=== PATIENT | female | born 1940 | race Caucasian/White ===

== ENCOUNTER → 2017-05-25 | Outpatient (CLI) | payer MEDICARE, OTHER ==
--- NOTE | 2017-05-25 13:48 | RAD ---
CT head without intravenous contrast History: TIA. Comparison: None. Technique: Axial images are obtained of the head from the skull base through the vertex without IV contrast. Exposure: One or more of the following individualized dose reduction techniques were utilized for this examination: 1. Automated exposure control 2. Adjustment of the mA and/or kV according to patient size 3. Use of iterative reconstruction technique Findings: The ventricles are appropriate in size, shape, and location for the patient's age. No obvious intracranial mass, mass-effect, midline shift, hemorrhage or obvious acute infarction is identified. Basilar cisterns are patent. Mild, patchy, nonspecific white matter low-attenuation is seen, probably from chronic thoracic ischemic disease. Bone windows demonstrate no acute calvarial abnormality. Appearance of bilateral maxillary sinuses suggests previous surgery. Incompletely seen is a right maxillary sinus disease. Impression: 1. No acute intracranial process. Please note that CT can be relatively insensitive to acute ischemic infarction for up to 24 hours after symptom onset. 2. Mild nonspecific white matter changes, probably from chronic microvascular ischemic disease. 3. Suspect previous sinus surgery. Electronically signed by: Toan Baeza MD (05/25/2017 1:45 PM) [place] [id number]
--- NOTE | 2017-05-25 14:41 | RAD ---
Carotid ultrasound, 05/25/2017: History: TIA, dizziness, memory problems Duplex evaluation of the carotid arteries in neck was performed including grayscale, color-flow and spectral Doppler analysis. There is mild intimal thickening in the common carotid arteries extending into the bifurcations. There is mild atherosclerotic plaquing at the right carotid bifurcation with partial calcification of the plaques. The peak systolic velocity in the right internal carotid artery is 53 cm/s with an end-diastolic velocity of 9 cm/s. The internal carotid common carotid artery ratio on the right is 0.8. The Doppler findings suggest underlying luminal narrowing in the 0-50% diameter range. On the left, no significant plaque formation is seen at the bifurcation. The left internal carotid artery is tortuous. The peak systolic velocity in the left internal carotid artery is 64 cm/s within an end-diastolic velocity 16 cm/s. The yields an internal carotid to common carotid artery ratio on the left of 0.70. These findings do not suggest significant stenosis. Antegrade flow is present in both vertebral arteries in the neck. IMPRESSION: 1. Mild atherosclerotic plaquing at the right carotid bifurcation with underlying luminal narrowing of the proximal internal carotid artery in the 0-50% diameter range. 2. No duplex evidence of a significant carotid stenosis at the left carotid bifurcation. Note: Stenosis calculations for CTA, MRA and conventional angiography are based upon determination of the distal ICA diameter in accordance with the NASCET methodology. Stenosis calculations for Doppler studies are derived from validated velocity criteria which are known to correlate with NASCET methodology of determining stenosis.
== END | disposition home or self-care (01) ==
LOC: US 11:26
PROVIDERS: ATTEND Internal Medicine Cardiovascular Disease
DX: I65.21 Occlusion and stenosis of right carotid artery (principal); I99.8 Other disorder of circulatory system; Z86.73 Personal history of transient ischemic attack (TIA), and cerebral infarction without residual deficits
CPT/HCPCS: 70450; 93880

== ENCOUNTER → 2018-03-25 | Outpatient (CLI) | payer MEDICARE, OTHER ==
[2018-03-25 11:17] LABS: CREATININE 0.9 mg/dL (0.6-1.0); GFR 60.9; POTASSIUM 3.6 mmol/L (3.5-5.1)
== END | disposition home or self-care (01) ==
LOC: LAB 10:30
PROVIDERS: ATTEND Internal Medicine Cardiovascular Disease
DX: I10 Essential (primary) hypertension (principal)
CPT/HCPCS: 36415; 80048

== ENCOUNTER → 2018-05-08 | Outpatient (CLI) | payer MEDICARE, OTHER ==
[2018-05-08 11:50] LABS: BASO # 0.1 x10^3/uL (0.0-0.2); BASO % 1 % (0-3); EOS # 0.6 x10^3/uL (0.0-0.7); EOS % 8 % (0-3); HEMATOCRIT 35.2 % (36.0-47.0); HEMOGLOBIN 11.4 g/dL (12.0-15.5); LYMPH # 1.4 x10^3/uL (1.0-4.8); LYMPH % 18 % (24-48); MEAN CORPUSCULAR HEMOGLOBIN 27 pg (25-35); MEAN CORPUSCULAR HGB CONC 32 g/dL (31-37); MEAN CORPUSCULAR VOLUME 84 fL (79-100); MONO # 0.8 x10^3/uL (0.0-1.1); MONO % 10 % (0-9); NEUT % 64 % (31-73); PLATELET COUNT 312 x10^3/uL (140-400); RED CELL DISTRIBUTION WIDTH 13.6 % (11.5-14.5); WHITE BLOOD COUNT 7.8 x10^3/uL (4.0-11.0)
[2018-05-08 11:54] LABS: ALBUMIN 3.6 g/dL (3.4-5.0); ALK PHOS 71 U/L (46-116); ANION GAP 11 (6-14); AST (SGOT) 19 U/L (15-37); BLOOD UREA NITROGEN 10 mg/dL (7-20); BUN/CREATININE RATIO 10 (6-20); CALCIUM 9.3 mg/dL (8.5-10.1); CARBON DIOXIDE 26 mmol/L (21-32); CHLORIDE 100 mmol/L (98-107); GFR 53.9; GLUCOSE 104 mg/dL (70-99); POTASSIUM 3.9 mmol/L (3.5-5.1); SODIUM 137 mmol/L (136-145); TOTAL BILIRUBIN 0.4 mg/dL (0.2-1.0); TOTAL PROTEIN 7.2 g/dL (6.4-8.2)
[2018-05-08 11:57] LABS: ALT (SGPT) < 6 U/L (14-59)
[2018-05-08 11:58] LABS: BACTERIA,URINE FEW /HPF (0-FEW); BILIRUBIN,URINE NEG (NEG); CLARITY,URINE HAZY; COLOR,URINE YELLOW; GLUCOSE,URINE NEG (NEG); NITRITE,URINE NEG (NEG); RBC,URINE 0 /HPF (0-2); SQUAMOUS EPITHELIAL CELL,UR FEW /LPF; UROBILINOGEN,URINE 0.2 mg/dL (0.2 mg/dL)
[2018-05-08 14:15] LABS: FREE T4 1.35 ng/dL (0.76-1.46); THYROID STIM HORMONE (TSH) 4.094 uIU/mL (0.358-3.740)
== END | disposition home or self-care (01) ==
LOC: LAB 10:48
PROVIDERS: ATTEND Physician Assistant
DX: L29.9 Pruritus, unspecified (principal)
CPT/HCPCS: 36415; 80053; 81001; 84439; 84443; 84480; 85025